=== PATIENT | male | born 2000 | race Caucasian/White ===

== ENCOUNTER 2021-01-06 12:45 | Emergency (ER) | payer SELFPAY ==
[~2021-01-06] VITALS: Ht 167.6 cm; Wt 113.8 kg
[2021-01-06 12:55] VITALS: BP 132/78
[2021-01-06] MEDS ORDERED: IV NORMAL SALINE 1,000ML 1,000 ML IV ONE (13:15)
--- NOTE | 2021-01-06 13:33 | EKG ---
[address] [address] Test Date: 2021-01-06 Test Time: 13:24:59 Pat Name: NEGRITA COOKTrinyAmina Department: Room: Gender: Hospice Plan Administrator: CELESTINO : 2000 Requested By: BETTY VILLASENOR Order Number: [id number] Reading MD: Measurements Intervals [place] Rate: 112 P: 37 SC: 116 QRS: 40 QRSD: 80 T: 23 QT: 286 QTc: 392 Interpretive Statements SINUS TACHYCARDIA LEFT ATRIAL ABNORMALITY ABNORMAL ECG RI6.02 No previous ECG available for comparison
--- NOTE | 2021-01-06 13:34 | PHYS DOC ---
Past History Past Medical History: No Pertinent History Additional Past Surgical Histo: hand surgery Alcohol Use: None General Adult EDM: Chief Complaint: COUGH HPI: HPI: Patient is a 20-year-old male who presents with nausea/vomiting/diarrhea, no taste or smell, cough and shortness of breath x2 days. Patient states he has not vomited since yesterday. But has had diarrhea today. Patient reports abdominal pain with vomiting. Patient states "yesterday I was sitting on the couch at home, blacked out, when I woke up I started vomiting and then I felt fine". "And then a few hours later I started vomiting again". Patient reports taking TheraFlu yesterday to treat symptoms. Denies exposure to Covid. Patient denies any medical history. Review of Systems: Review of Systems: Constitutional: Denies fever or chills Eyes: Denies change in visual acuity HENT: Denies nasal congestion or sore throat Respiratory: Reports cough and shortness of breath Cardiovascular: Denies chest pain or edema GI: Reports abdominal pain, nausea, vomiting, diarrhea : Denies dysuria Musculoskeletal: Denies back pain or joint pain Integument: Denies rash Neurologic: Denies headache, focal weakness or sensory changes Endocrine: Denies polyuria or polydipsia Lymphatic: Denies swollen glands Psychiatric: Denies depression or anxiety Current Medications: Current Meds: Current Medications Medications (Trade) Dose Ordered Sig/Bridget Start Time Stop Time Status Last Admin Dose Admin Sodium Chloride 1,000 ml @ 1,000 mls/hr 1X ONCE 01/06/21 13:15 01/06/21 14:14 Allergies: Allergies: Allergies Coded Allergies Type Severity Reaction Last Updated Verified No Known Drug Allergies 01/06/21 No Physical Exam: PE: Constitutional: Well developed, well nourished, no acute distress, non-toxic appearance. [] HENT: Normocephalic, atraumatic, bilateral external ears normal, oropharynx mois t, no oral exudates, nose normal. [] Eyes: PERRLA, EOMI, conjunctiva normal, no discharge. [] Neck: Normal range of motion, no tenderness, supple, no stridor. [] Cardiovascular:Heart rate sinus tachycardia, no murmur [] Lungs & Thorax: Bilateral breath sounds clear to auscultation [] Abdomen: Bowel sounds normal, soft, no tenderness, no masses, no pulsatile masses. [] Skin: Warm, dry, no erythema, no rash. [] Back: No tenderness, no CVA tenderness. [] Extremities: No tenderness, no cyanosis, no clubbing, ROM intact, no edema. [] Neurologic: Alert and oriented X 3, normal motor function, normal sensory function, no focal deficits noted. [] Psychologic: Affect normal, judgement normal, mood normal. [] Current Patient Data: Vital Signs: Vital Signs Date Time Temp Pulse Resp B/P (MAP) Pulse Ox O2 Delivery O2 Flow Rate FiO2 01/06/21 12:55 98.8 124 18 132/78 (96) 96 Room Air EKG: EKG: Sinus tachycardia. Heart rate [address] Le at 1329 [] Radiology/Procedures: Radiology/Procedures: [] Study: XR CHEST 1V Indication: Shortness of breath. Comparison: None. Findings: Unremarkable cardiomediastinal silhouette and juan. No focal airspace opacity, layering effusion or pneumothorax. Impression: No acute radiographic abnormality of the chest. Electronically signed by: AMY ROBERSON MD (01/06/2021 1:36 PM) [id number] Heart Score: Risk Factors: Risk Factors: DM, Current or recent (<one month) smoker, HTN, HLP, family history of CAD, obesity. Risk Scores: Score 0 - 3: 2.5% MACE over next 6 weeks - Discharge Home Score 4 - 6: 20.3% MACE over next 6 weeks - Admit for Clinical Observation Score 7 - 10: 72.7% MACE over next 6 weeks - Early Invasive Strategies Course & Med Decision Making: Course & Med Decision Making Pertinent Labs and Imaging studies reviewed. (See chart for details) []Patient is a 20-year-old male who presents with nausea/vomiting/diarrhea, no taste or smell, cough and shortness of breath x2 days. Patient states he has not vomited since yesterday. But has had diarrhea today. Patient reports abdominal pain with vomiting. Patient states "yesterday I was sitting on the couch at home, blacked out, when I woke up I started vomiting and then I felt fine". "And then a few hours later I started vomiting again". Patient reports taking TheraFlu yesterday to treat symptoms. Denies exposure to Covid. Patient denies any medical history. EKG shows sinus tachycardia, heart rate 112 bpm. Patient given fluid bolus. Zofran ordered for nausea. Chest x-ray negative for any acute abnormalities. D-dimer is negative. Wells score 1.5. Low risk for PE. Updated patient on results. Patient's heart rate has improved. Patient is reporting nausea. Zofran ordered. We will send patient home with a prescription for Zofran. Explained to patient that he needed to return to the emergency room if he had worsening symptoms. Patient agrees with this plan. Patient is hemodynamically stable able to ambulate on his own. Patient was tested for Covid in the ED. Patient likely has COVID-19 based on symptoms. Patient educated on self isolation. Tylenol and ibuprofen for discomfort. Dragon Disclaimer: Dragon Disclaimer: This electronic medical record was generated, in whole or in part, using a voice recognition dictation system. Departure Departure: Impression: Primary Impression: Cough Disposition: 01 DC HOME SELF CARE/HOMELESS Condition: IMPROVED Referrals: PCP,NO (PCP) Patient Instructions: Cough, Adult, [id number] Additional Instructions: You were seen in the emergency room today for cough, shortness of breath, nausea and diarrhea. All of your lab results and chest x-ray were negative for any acute abnormalities. Based on your symptoms you most likely have COVID-19. Make sure you are drinking plenty of fluids to avoid dehydration. You can take Tylenol ibuprofen at home for discomfort. I am also sending you home with a prescription of Zofran to help with nausea. Please return to the emergency room with worsening symptoms or concerns. Otherwise follow-up with your PCP. EMERGENCY DEPARTMENT GENERAL DISCHARGE INSTRUCTIONS Thank you for coming to [facility] (ED) today and trusting us with you care. We trust that you had a positivie experience in our Emergency Department. If you wish to speak to the department management, you may call the director at [phone]. YOUR FOLLOW UP INSTRUCTIONS ARE FOLLOWS: 1. Do you have a private Doctor? If you do not have a private doctor, please ask for a resource list of physicians or clinics that may be able to assist you with follow up care. 2. The Emergency Physician has interpreted your x-rays. The X-Ray specialist will also review them. If there is a change in the findings, you will be notified in 48 hours when at all possible. 3. A lab test or culture has been done, your results will be reviewed and you will be notified if you need a change in treatment. ADDITIONAL INSTRUCTIONS AND INFORMATION: 1. Your care today has been supervised by a physician who is specially trained in emergency care. Many problems require more than one evaluation for a complete diagnosis and treatment. We recommend that you schedule your follow up appointment as recommended to ensure complete treatment of you illness or injury. If you are unable to obtain follow up care and continue to have a problem, or if your condition worsens, we recommend that you return to the ED. 2. We are not able to safely determine your condition over the phone nor are we able to give sound medical advice over the phone. For these safety reasons, if you call for medical advice we will ask you to come to the ED for further evaluation. 3. If you have any questions regarding these discharge instructions please call the ED at [phone]. SAFETY INFORMATION: In the interest of safety, wellness, and injury prevention; we encourage you to wear your sealbelt, if you smoke; quite smoking, and we encourage family to use a protective helmet for bicycling and other sporting events that present an increased risk for head injury. IF YOUR SYMPTOMS WORSEN OR NEW SYMPTOMS DEVELOP, OR YOU HAVE CONCERNS ABOUT YOUR CONDITION; OR IF YOUR CONDITION WORSENS WHILE YOU ARE WAITING FOR YOUR FOLLOW UP APPOINTMENT; EITHER CONTACT YOUR PRIMARY CARE DOCTOR, THE PHYSICIAN WHOSE NAME AND NUMBER YOU WERE GIVEN, OR RETURN TO THE ED IMMEDIATELY. Scripts Ondansetron Hcl (ZOFRAN) 4 Mg Tablet 4 MG PO TID PRN PRN for NAUSEA, #9 TAB Prov: BETTY VILLASENOR APRN 01/06/21 BETTY VILLASENOR APRN Jan 06, 2021 13:34
--- NOTE | 2021-01-06 13:38 | RAD ---
Study: XR CHEST 1V Indication: Shortness of breath. Comparison: None. Findings: Unremarkable cardiomediastinal silhouette and juan. No focal airspace opacity, layering effusion or p neumothorax. Impression: No acute radiographic abnormality of the chest. Electronically signed by: AMY ROBERSON MD (01/06/2021 1:36 PM) [id number]
[2021-01-06 13:43] LABS: BASO % 0 % (0-3); EOS % 0 % (0-3); HEMATOCRIT 48.3 % (39.0-53.0); HEMOGLOBIN 16.6 g/dL (13.0-17.5); LYMPH % 19 % (24-48); MEAN CORPUSCULAR HEMOGLOBIN 32 pg (25-35); MEAN CORPUSCULAR HGB CONC 34 g/dL (31-37); MEAN CORPUSCULAR VOLUME 93 fL (79-100); MONO # 0.9 x10^3/uL (0.0-1.1); MONO % 17 % (0-9); NEUT # 3.4 x10^3uL (1.8-7.7); NEUT % 64 % (31-73); PLATELET COUNT 203 x10^3/uL (140-400); RED CELL DISTRIBUTION WIDTH 13.2 % (11.5-14.5); WHITE BLOOD COUNT 5.3 x10^3/uL (4.0-11.0)
[2021-01-06] MEDS ORDERED: ONDANSETRON PF 4 MG/2 ML VIAL. IVP ONE ×2 (13:45→16:15)
[2021-01-06 13:51] LABS: CALCIUM 8.8 mg/dL (8.5-10.1); CREATININE 0.9 mg/dL (0.7-1.3); GFR 107.6; POTASSIUM 3.6 mmol/L (3.5-5.1)
[2021-01-06 13:57] LABS: ALBUMIN/GLOBULIN RATIO 0.9 (1.0-1.7); TOTAL BILIRUBIN 0.3 mg/dL (0.2-1.0); TOTAL PROTEIN 8.4 g/dL (6.4-8.2)
[2021-01-06] MEDS ORDERED: ONDA4TAB7 PO (16:17)
== END 2021-01-06 16:46 | disposition home or self-care (01) ==
LOC: ER 12:45
DX: U07.1 COVID-19 (principal); R05 Cough; R11.2 Nausea with vomiting, unspecified; R19.7 Diarrhea, unspecified; R10.9 Unspecified abdominal pain; Z98.890 Other specified postprocedural states
CPT/HCPCS: 36415; 71045; 80053; 83690; 85025; 85379; 93005; 96361; 96374; 96376; 99285; C9803; J2405; J7030; U0003